=== PATIENT | male | born 1975 | race Caucasian/White ===

== ENCOUNTER 2020-07-06 19:47 | Emergency (ER) | payer OTHER ==
[2020-07-06] MEDS ORDERED: Morphine 4 MG/ML VIAL ONE ×2 (20:04→21:42)
[2020-07-06] MEDS ORDERED: Ondansetron PF 4 MG/2 ML Vial ONE (20:04)
== END 2020-07-06 21:50 | disposition home or self-care (01) ==
LOC: CSHERS 19:47
DX: S52.501A Unspecified fracture of the lower end of right radius, initial encounter for closed fracture (principal); S52.601A Unspecified fracture of lower end of right ulna, initial encounter for closed fracture; W11.XXXA Fall on and from ladder, initial encounter
CPT/HCPCS: 29125; 93005; 96374; 96375; 96376; J2270; J2405